=== PATIENT | male | born 2000 | race Two or more races ===

== ENCOUNTER 2021-04-19 19:27 | Inpatient (IN) | payer MEDICAID, OTHER ==
[~2021-04-19] VITALS: Ht 172.7 cm; Wt 51.7 kg
[2021-04-19] MEDS ORDERED: HALOPERIDOL 5 MG TABLET PO ONE (20:00)
[2021-04-19] MEDS ORDERED: LORazepam 1 MG TABLET PO ONE (20:00)
[2021-04-19] MEDS ORDERED: DiphenhydrAMINE HCL 25 MG CAPSULE PO ONE (20:00)
[2021-04-19 20:03] LABS: BASOPHILS % (AUTO) 1.2 % (0.0-2.0); EOSINOPHILS % (AUTO) 4.4 % (1.0-6.0); HEMOGLOBIN 15.3 g/dL (13.5-17.5); LYMPHOCYTES # (AUTO) 1.6 K/uL (1.0-4.8); LYMPHOCYTES % (AUTO) 19.4 % (22.0-44.0); MEAN CORPUSCULAR HEMOGLOBIN 30.2 pg (26.0-34.0); MEAN CORPUSCULAR HGB CONC 34.1 G/dL (31.0-37.0); MEAN CORPUSCULAR VOLUME 89 fL (80-100); MONOCYTES # (AUTO) 0.6 K/uL (0.1-1.0); MONOCYTES % (AUTO) 6.9 % (2.0-9.0); NEUTROPHILS # (AUTO) 5.7 K/uL (1.8-7.7); NEUTROPHILS % (AUTO) 68.1 % (40.0-70.0); PLATELET COUNT (AUTO) 306 K/uL (150-450); RED BLOOD CELL COUNT(AUTO) 5.08 MIL/uL (4.50-5.90); RED CELL DISTRIBUTION WIDTH 12.9 % (11.5-14.5)
[2021-04-19 20:12] LABS: ANION GAP 12 mmol/L (8-16); CALCIUM, TOTAL 9.4 mg/dL (8.8-10.5); CARBON DIOXIDE 26 mmol/L (22-29); CHLORIDE 104 mmol/L (98-107); CREATININE 0.71 mg/dL (0.60-1.30); GLOMERULAR FILTR. RATE CALC > 60 mL/min (>60); GLUCOSE,RANDOM 97 mg/dL (70-110); SODIUM SERUM 142 mmol/L (136-145); UREA NITROGEN, BLOOD 6 mg/dL (7-18)
[2021-04-19 20:17] LABS: ALANINE AMINOTRANSFERASE 17 U/L (12-78); ALBUMIN 4.6 g/dL (3.4-5.0); ALKALINE PHOSPHATASE 69 U/L (46-116); ASPARTATE AMINOTRANSFERASE 22 U/L (15-37); BILIRUBIN,TOTAL 0.6 mg/dL (0.1-1.0); TOTAL PROTEIN, SERUM 8.5 g/dL (6.4-8.2)
[2021-04-19 20:21] LABS: LITHIUM < 0.20 mmol/L (0.60-1.20)
[2021-04-19 20:21] LABS: COVID AG,FIA SOURCE NASAL SWAB
[2021-04-19 20:31] LABS: AMPHET/METH SCREEN,URINE NEGATIVE (NEGATIVE); BARBITURATE SCREEN, URINE NEGATIVE (NEGATIVE); BENZODIAZEPINES SCREEN,URINE NEGATIVE (NEGATIVE); CANNABINOID SCREEN,URINE POSITIVE (NEGATIVE); COCAINE SCREEN,URINE NEGATIVE (NEGATIVE); METHADONE SCREEN, URINE NEGATIVE (NEGATIVE); OPIATE SCREEN,URINE NEGATIVE (NEGATIVE); PHENCYCLIDINE SCREEN,URINE NEGATIVE (NEGATIVE)
[2021-04-20] MEDS: LORazepam 2 MG TABLET PO PRN (09:43)
[2021-04-20 12:30] VITALS: BP 127/75
[2021-04-20 16:37] VITALS: BP 102/63
[2021-04-21 04:31] VITALS: BP 106/72
[2021-04-21 09:38] VITALS: BP 114/70
[2021-04-21] MEDS: HALOPERIDOL 5 MG TABLET PO PRN (09:39)
[2021-04-21] MEDS: LORazepam 2 MG TABLET PO PRN (09:39)
[2021-04-21] MEDS ORDERED: CloNIDine HCL 0.1 MG TABLET PO PRN (15:30)
[2021-04-21] MEDS ORDERED: PETROLATUM,WHITE 28 GM JELLY TP PRN (15:30)
[2021-04-21] MEDS ORDERED: MAG HYDROX/AL HYDROX/SIMETH ES 30 ML SUSPENSION UDCUP PO PRN (15:30)
[2021-04-21] MEDS ORDERED: ONDANSETRON HCL 4 MG TABLET PO PRN (15:30)
[2021-04-21] MEDS ORDERED: IBUPROFEN 400 MG TABLET PO PRN (15:30)
[2021-04-21] MEDS ORDERED: MAGNESIUM HYDROXIDE SUSPENSION 30 ML UDCUP PO PRN (15:30)
[2021-04-21] MEDS ORDERED: DOCUSATE SODIUM 100 MG CAPSULE PO PRN (15:30)
[2021-04-21] MEDS ORDERED: ACETAMINOPHEN 325 MG TABLET PO PRN (15:30)
[2021-04-21] MEDS ORDERED: LOPERAMIDE HCL 2 MG CAPSULE PO PRN (15:30)
[2021-04-21] MEDS ORDERED: NICOTINE 14 MG/24 HOUR PATCH TD PRN (15:30)
[2021-04-21] MEDS ORDERED: ALBUTEROL SULFATE HFA 90 MCG/PUFF 8 GM INHALER IH PRN (15:30)
[2021-04-21] MEDS ORDERED: GuaiFENesin/D-METHORPHAN [SUGAR-FREE] 200-20MG/10 ML SYRUP UDCUP PO PRN (15:30)
[2021-04-21 17:33] VITALS: BP 108/74
[2021-04-21] MEDS: RisperiDONE 1 MG TABLET PO SCH (21:40)
[2021-04-22 04:27] VITALS: BP 102/68
[2021-04-22] MEDS: RisperiDONE 1 MG TABLET PO SCH ×2 (09:16→20:40)
[2021-04-22] MEDS: LORazepam 2 MG TABLET PO PRN ×2 (09:16→20:40)
[2021-04-22 11:04] VITALS: BP 110/70
[2021-04-22 16:07] VITALS: BP 112/70
[2021-04-23 05:28] VITALS: BP 93/53
[2021-04-23 08:03] VITALS: BP 110/70
[2021-04-23] MEDS: THIAMINE 100 MG TABLET PO SCH (08:55)
[2021-04-23] MEDS: RisperiDONE 1 MG TABLET PO SCH ×2 (08:55→20:50)
[2021-04-23] MEDS: MULTIVITAMINS WITH MINERALS, THERAPEUTIC TABLET PO SCH (08:55)
[2021-04-23] MEDS: FOLIC ACID 1 MG TABLET PO SCH (08:55)
[2021-04-23 16:43] VITALS: BP 120/81
[2021-04-23] MEDS: HALOPERIDOL 5 MG TABLET PO PRN (18:22)
[2021-04-23] MEDS: LORazepam 2 MG TABLET PO PRN (18:22)
[2021-04-23] MEDS: ZOLPIDEM TARTRATE 10 MG TABLET PO PRN (20:50)
[2021-04-24 04:30] VITALS: BP 117/77
[2021-04-24] MEDS: MULTIVITAMINS WITH MINERALS, THERAPEUTIC TABLET PO SCH (08:14)
[2021-04-24] MEDS: LORazepam 2 MG TABLET PO PRN (08:14)
[2021-04-24] MEDS: THIAMINE 100 MG TABLET PO SCH (08:14)
[2021-04-24] MEDS: RisperiDONE 1 MG TABLET PO SCH ×2 (08:14→20:09)
[2021-04-24] MEDS: FOLIC ACID 1 MG TABLET PO SCH (08:14)
[2021-04-24 08:28] VITALS: BP 112/56
[2021-04-24 16:31] VITALS: BP 114/58
[2021-04-24] MEDS: ZOLPIDEM TARTRATE 10 MG TABLET PO PRN (20:09)
[2021-04-25 05:12] VITALS: BP 112/62
[2021-04-25] MEDS: MULTIVITAMINS WITH MINERALS, THERAPEUTIC TABLET PO SCH (08:25)
[2021-04-25] MEDS: THIAMINE 100 MG TABLET PO SCH (08:25)
[2021-04-25] MEDS: FOLIC ACID 1 MG TABLET PO SCH (08:25)
[2021-04-25] MEDS: LORazepam 2 MG TABLET PO PRN ×2 (08:25→16:33)
[2021-04-25] MEDS: RisperiDONE 1 MG TABLET PO SCH ×2 (08:25→20:44)
[2021-04-25 09:59] VITALS: BP 136/69
[2021-04-25 16:03] VITALS: BP 111/63
[2021-04-25] MEDS: HALOPERIDOL 5 MG TABLET PO PRN (16:33)
[2021-04-25] MEDS: ZOLPIDEM TARTRATE 10 MG TABLET PO PRN (20:44)
[2021-04-26 00:30] VITALS: BP 110/64
[2021-04-26 08:08] VITALS: BP 118/67
[2021-04-26] MEDS: LORazepam 2 MG TABLET PO PRN ×2 (08:22→20:38)
[2021-04-26] MEDS: HALOPERIDOL 5 MG TABLET PO PRN ×2 (08:22→20:38)
[2021-04-26] MEDS: RisperiDONE 1 MG TABLET PO SCH ×2 (08:22→20:38)
[2021-04-26] MEDS: MULTIVITAMINS WITH MINERALS, THERAPEUTIC TABLET PO SCH (08:22)
[2021-04-26] MEDS: THIAMINE 100 MG TABLET PO SCH (08:22)
[2021-04-26] MEDS: FOLIC ACID 1 MG TABLET PO SCH (08:22)
[2021-04-26 16:07] VITALS: BP 110/67
[2021-04-27 00:20] VITALS: BP 112/66
[2021-04-27] MEDS: MULTIVITAMINS WITH MINERALS, THERAPEUTIC TABLET PO SCH (08:17)
[2021-04-27] MEDS: FOLIC ACID 1 MG TABLET PO SCH (08:17)
[2021-04-27] MEDS: THIAMINE 100 MG TABLET PO SCH (08:17)
[2021-04-27] MEDS: RisperiDONE 1 MG TABLET PO SCH ×2 (08:17→20:44)
[2021-04-27] MEDS: LORazepam 2 MG TABLET PO PRN ×2 (08:17→16:02)
[2021-04-27 09:18] VITALS: BP 122/68
[2021-04-27] MEDS: HALOPERIDOL 5 MG TABLET PO PRN (16:02)
[2021-04-27 16:06] VITALS: BP 126/75
[2021-04-28] MEDS: LORazepam 2 MG TABLET PO PRN (08:20)
[2021-04-28] MEDS: MULTIVITAMINS WITH MINERALS, THERAPEUTIC TABLET PO SCH (08:20)
[2021-04-28] MEDS: THIAMINE 100 MG TABLET PO SCH (08:20)
[2021-04-28] MEDS: RisperiDONE 1 MG TABLET PO SCH ×2 (08:20→21:25)
[2021-04-28] MEDS: FOLIC ACID 1 MG TABLET PO SCH (08:21)
[2021-04-28 09:19] VITALS: BP 122/74
[2021-04-28 16:07] VITALS: BP 103/64
[2021-04-28] MEDS: ZOLPIDEM TARTRATE 10 MG TABLET PO PRN (21:26)
[2021-04-29 00:07] VITALS: BP 105/70
[2021-04-29] MEDS: LORazepam 2 MG TABLET PO PRN ×2 (02:22→16:07)
[2021-04-29] MEDS: HALOPERIDOL 5 MG TABLET PO PRN ×2 (02:23→16:07)
[2021-04-29] MEDS: RisperiDONE 1 MG TABLET PO SCH ×2 (08:22→20:09)
[2021-04-29] MEDS: MULTIVITAMINS WITH MINERALS, THERAPEUTIC TABLET PO SCH (08:22)
[2021-04-29] MEDS: THIAMINE 100 MG TABLET PO SCH (08:22)
[2021-04-29] MEDS: FOLIC ACID 1 MG TABLET PO SCH (08:22)
[2021-04-29 08:35] VITALS: BP 110/72
[2021-04-29 17:40] VITALS: BP 117/68
[2021-04-30 04:43] VITALS: BP 112/67
[2021-04-30] MEDS: THIAMINE 100 MG TABLET PO SCH (08:16)
[2021-04-30] MEDS: MULTIVITAMINS WITH MINERALS, THERAPEUTIC TABLET PO SCH (08:16)
[2021-04-30] MEDS: FOLIC ACID 1 MG TABLET PO SCH (08:16)
[2021-04-30] MEDS: RisperiDONE 1 MG TABLET PO SCH ×2 (08:16→20:23)
[2021-04-30 08:25] VITALS: BP 114/66
[2021-04-30] MEDS: HALOPERIDOL 5 MG TABLET PO PRN (12:25)
[2021-04-30 16:10] VITALS: BP 105/69
[2021-05-01] MEDS: HALOPERIDOL 5 MG TABLET PO PRN ×2 (04:26→09:47)
[2021-05-01 04:40] VITALS: BP 102/67
[2021-05-01 08:00] VITALS: BP 108/70
[2021-05-01] MEDS: FOLIC ACID 1 MG TABLET PO SCH (08:03)
[2021-05-01] MEDS: THIAMINE 100 MG TABLET PO SCH (08:03)
[2021-05-01] MEDS: MULTIVITAMINS WITH MINERALS, THERAPEUTIC TABLET PO SCH (08:03)
[2021-05-01] MEDS: RisperiDONE 1 MG TABLET PO SCH ×2 (08:03→20:29)
[2021-05-01] MEDS: BENZTROPINE MESYLATE 0.5 MG TABLET PO SCH ×2 (12:09→20:29)
[2021-05-01] MEDS ORDERED: LORazepam 2 MG/ML VIAL ONE (13:13)
[2021-05-01] MEDS ORDERED: LORazepam 2 MG/ML VIAL IM ONE (13:15)
[2021-05-01 16:10] VITALS: BP 112/72
[2021-05-01] MEDS: LORazepam 0.5 MG TABLET PO PRN (20:29)
[2021-05-02 04:43] VITALS: BP 94/55
[2021-05-02] MEDS: BENZTROPINE MESYLATE 0.5 MG TABLET PO SCH ×2 (08:15→20:56)
[2021-05-02] MEDS: MULTIVITAMINS WITH MINERALS, THERAPEUTIC TABLET PO SCH (08:15)
[2021-05-02] MEDS: THIAMINE 100 MG TABLET PO SCH (08:15)
[2021-05-02] MEDS: FOLIC ACID 1 MG TABLET PO SCH (08:15)
[2021-05-02] MEDS: HALOPERIDOL 5 MG TABLET PO PRN (08:15)
[2021-05-02] MEDS: LORazepam 0.5 MG TABLET PO PRN (08:15)
[2021-05-02] MEDS: RisperiDONE 1 MG TABLET PO SCH ×2 (08:15→20:56)
[2021-05-02 08:44] VITALS: BP 113/68
[2021-05-02 16:04] VITALS: BP 113/72
[2021-05-02 17:36] LABS: GLUCOMETER DEV NAME(LOC) POC.BV
[2021-05-03 04:08] VITALS: BP 109/64
[2021-05-03] MEDS: FOLIC ACID 1 MG TABLET PO SCH (08:07)
[2021-05-03] MEDS: THIAMINE 100 MG TABLET PO SCH (08:07)
[2021-05-03] MEDS: RisperiDONE 1 MG TABLET PO SCH ×2 (08:07→20:07)
[2021-05-03] MEDS: BENZTROPINE MESYLATE 0.5 MG TABLET PO SCH ×2 (08:08→20:07)
[2021-05-03] MEDS: MULTIVITAMINS WITH MINERALS, THERAPEUTIC TABLET PO SCH (08:08)
[2021-05-03 08:28] VITALS: BP 118/70
[2021-05-03 16:03] VITALS: BP 140/89
[2021-05-03] MEDS: LORazepam 0.5 MG TABLET PO PRN (17:59)
[2021-05-03] MEDS: ZOLPIDEM TARTRATE 10 MG TABLET PO PRN (20:07)
[2021-05-04 05:10] VITALS: BP 122/84
[2021-05-04 08:00] VITALS: BP 124/80
[2021-05-04] MEDS: MULTIVITAMINS WITH MINERALS, THERAPEUTIC TABLET PO SCH (08:27)
[2021-05-04] MEDS: FOLIC ACID 1 MG TABLET PO SCH (08:27)
[2021-05-04] MEDS: THIAMINE 100 MG TABLET PO SCH (08:27)
[2021-05-04] MEDS: RisperiDONE 1 MG TABLET PO SCH ×2 (08:28→20:37)
[2021-05-04] MEDS: HALOPERIDOL 5 MG TABLET PO PRN ×2 (08:28→16:45)
[2021-05-04] MEDS: BENZTROPINE MESYLATE 0.5 MG TABLET PO SCH ×2 (08:28→20:37)
[2021-05-04] MEDS: FLUoxetine HCL 20 MG CAPSULE PO SCH (10:41)
[2021-05-04 16:05] VITALS: BP 116/73
[2021-05-04] MEDS: LORazepam 0.5 MG TABLET PO PRN (16:45)
[2021-05-04] MEDS: QUEtiapine FUMARATE 200 MG TABLET PO SCH (20:43)
[2021-05-05 06:24] VITALS: BP 118/62
[2021-05-05] MEDS: BENZTROPINE MESYLATE 0.5 MG TABLET PO SCH ×2 (08:24→20:08)
[2021-05-05] MEDS: RisperiDONE 1 MG TABLET PO SCH ×2 (08:24→20:08)
[2021-05-05] MEDS: FOLIC ACID 1 MG TABLET PO SCH (08:24)
[2021-05-05] MEDS: FLUoxetine HCL 20 MG CAPSULE PO SCH (08:24)
[2021-05-05] MEDS: THIAMINE 100 MG TABLET PO SCH (08:24)
[2021-05-05] MEDS: MULTIVITAMINS WITH MINERALS, THERAPEUTIC TABLET PO SCH (08:24)
[2021-05-05 08:47] VITALS: BP 116/68
[2021-05-05 16:05] VITALS: BP 128/76
[2021-05-05] MEDS: ZOLPIDEM TARTRATE 10 MG TABLET PO PRN (20:08)
[2021-05-05] MEDS: QUEtiapine FUMARATE 200 MG TABLET PO SCH (20:08)
[2021-05-06 05:45] VITALS: BP 118/80
[2021-05-06] MEDS: FOLIC ACID 1 MG TABLET PO SCH (08:19)
[2021-05-06] MEDS: FLUoxetine HCL 20 MG CAPSULE PO SCH (08:19)
[2021-05-06] MEDS: MULTIVITAMINS WITH MINERALS, THERAPEUTIC TABLET PO SCH (08:19)
[2021-05-06] MEDS: RisperiDONE 1 MG TABLET PO SCH ×2 (08:19→20:14)
[2021-05-06] MEDS: THIAMINE 100 MG TABLET PO SCH (08:20)
[2021-05-06] MEDS: BENZTROPINE MESYLATE 0.5 MG TABLET PO SCH ×2 (08:20→20:14)
[2021-05-06 08:39] VITALS: BP 118/69
[2021-05-06 16:22] VITALS: BP 135/82
[2021-05-06] MEDS: QUEtiapine FUMARATE 200 MG TABLET PO SCH (20:14)
[2021-05-07 04:49] VITALS: BP 109/67
[2021-05-07 08:05] VITALS: BP 108/66
[2021-05-07] MEDS: MULTIVITAMINS WITH MINERALS, THERAPEUTIC TABLET PO SCH (08:10)
[2021-05-07] MEDS: FOLIC ACID 1 MG TABLET PO SCH (08:10)
[2021-05-07] MEDS: RisperiDONE 1 MG TABLET PO SCH ×2 (08:10→21:09)
[2021-05-07] MEDS: FLUoxetine HCL 20 MG CAPSULE PO SCH (08:10)
[2021-05-07] MEDS: BENZTROPINE MESYLATE 0.5 MG TABLET PO SCH ×2 (08:11→21:09)
[2021-05-07] MEDS: THIAMINE 100 MG TABLET PO SCH (08:11)
[2021-05-07 16:16] VITALS: BP 126/79
[2021-05-07] MEDS: QUEtiapine FUMARATE 200 MG TABLET PO SCH (21:08)
[2021-05-07] MEDS: ZOLPIDEM TARTRATE 10 MG TABLET PO PRN (21:09)
[2021-05-07] MEDS: LORazepam 0.5 MG TABLET PO PRN (21:09)
[2021-05-08 05:17] VITALS: BP 115/60
[2021-05-08] MEDS: RisperiDONE 1 MG TABLET PO SCH ×2 (08:06→20:56)
[2021-05-08] MEDS: FOLIC ACID 1 MG TABLET PO SCH (08:06)
[2021-05-08] MEDS: MULTIVITAMINS WITH MINERALS, THERAPEUTIC TABLET PO SCH (08:06)
[2021-05-08] MEDS: THIAMINE 100 MG TABLET PO SCH (08:06)
[2021-05-08] MEDS: FLUoxetine HCL 20 MG CAPSULE PO SCH (08:06)
[2021-05-08] MEDS: BENZTROPINE MESYLATE 0.5 MG TABLET PO SCH ×2 (08:09→20:56)
[2021-05-08 08:12] VITALS: BP 100/60
[2021-05-08 16:16] VITALS: BP 133/88
[2021-05-08] MEDS: QUEtiapine FUMARATE 200 MG TABLET PO SCH (20:56)
[2021-05-08] MEDS: ZOLPIDEM TARTRATE 10 MG TABLET PO PRN (20:56)
[2021-05-09 03:58] VITALS: BP 133/77
[2021-05-09] MEDS: FOLIC ACID 1 MG TABLET PO SCH (08:04)
[2021-05-09] MEDS: FLUoxetine HCL 20 MG CAPSULE PO SCH (08:04)
[2021-05-09] MEDS: BENZTROPINE MESYLATE 0.5 MG TABLET PO SCH ×2 (08:04→20:08)
[2021-05-09] MEDS: RisperiDONE 1 MG TABLET PO SCH ×2 (08:04→20:08)
[2021-05-09] MEDS: MULTIVITAMINS WITH MINERALS, THERAPEUTIC TABLET PO SCH (08:04)
[2021-05-09] MEDS: THIAMINE 100 MG TABLET PO SCH (08:04)
[2021-05-09 08:05] VITALS: BP 118/71
[2021-05-09 16:04] VITALS: BP 114/67
[2021-05-09] MEDS: LORazepam 2 MG TABLET PO PRN (19:17)
[2021-05-09] MEDS: QUEtiapine FUMARATE 200 MG TABLET PO SCH (20:08)
[2021-05-09] MEDS: ZOLPIDEM TARTRATE 10 MG TABLET PO PRN (20:08)
[2021-05-10 06:13] VITALS: BP 112/72
[2021-05-10] MEDS: FLUoxetine HCL 20 MG CAPSULE PO SCH (08:08)
[2021-05-10] MEDS: MULTIVITAMINS WITH MINERALS, THERAPEUTIC TABLET PO SCH (08:08)
[2021-05-10] MEDS: FOLIC ACID 1 MG TABLET PO SCH (08:08)
[2021-05-10] MEDS: THIAMINE 100 MG TABLET PO SCH (08:08)
[2021-05-10] MEDS: RisperiDONE 1 MG TABLET PO SCH ×2 (08:08→20:18)
[2021-05-10] MEDS: BENZTROPINE MESYLATE 0.5 MG TABLET PO SCH ×2 (08:08→20:18)
[2021-05-10 08:40] VITALS: BP 108/77
[2021-05-10 16:06] VITALS: BP 110/76
[2021-05-10] MEDS: LORazepam 2 MG TABLET PO PRN (18:08)
[2021-05-10] MEDS: HALOPERIDOL 5 MG TABLET PO PRN (18:08)
[2021-05-10] MEDS: QUEtiapine FUMARATE 200 MG TABLET PO SCH (20:18)
[2021-05-10] MEDS: ZOLPIDEM TARTRATE 10 MG TABLET PO PRN (20:19)
[2021-05-10 23:50] LABS: GLUCOMETER DEV NAME(LOC) POC.BV
[2021-05-11 02:47] VITALS: BP 106/69
[2021-05-11 08:14] VITALS: BP 124/70
[2021-05-11] MEDS: THIAMINE 100 MG TABLET PO SCH (08:34)
[2021-05-11] MEDS: RisperiDONE 1 MG TABLET PO SCH ×2 (08:34→20:34)
[2021-05-11] MEDS: FLUoxetine HCL 20 MG CAPSULE PO SCH (08:34)
[2021-05-11] MEDS: BENZTROPINE MESYLATE 0.5 MG TABLET PO SCH ×2 (08:34→20:34)
[2021-05-11] MEDS: FOLIC ACID 1 MG TABLET PO SCH (08:34)
[2021-05-11] MEDS: MULTIVITAMINS WITH MINERALS, THERAPEUTIC TABLET PO SCH (08:35)
[2021-05-11 16:14] VITALS: BP 127/86
[2021-05-11] MEDS: LORazepam 2 MG TABLET PO PRN (20:34)
[2021-05-11] MEDS: QUEtiapine FUMARATE 200 MG TABLET PO SCH (20:34)
[2021-05-12 04:01] VITALS: BP 123/67
[2021-05-12 08:07] VITALS: BP 120/70
[2021-05-12] MEDS: FLUoxetine HCL 20 MG CAPSULE PO SCH (08:20)
[2021-05-12] MEDS: THIAMINE 100 MG TABLET PO SCH (08:20)
[2021-05-12] MEDS: MULTIVITAMINS WITH MINERALS, THERAPEUTIC TABLET PO SCH (08:20)
[2021-05-12] MEDS: RisperiDONE 1 MG TABLET PO SCH ×2 (08:20→20:15)
[2021-05-12] MEDS: BENZTROPINE MESYLATE 0.5 MG TABLET PO SCH ×2 (08:20→20:15)
[2021-05-12] MEDS: FOLIC ACID 1 MG TABLET PO SCH (08:20)
[2021-05-12 16:11] VITALS: BP 136/83
[2021-05-12] MEDS: QUEtiapine FUMARATE 200 MG TABLET PO SCH (20:15)
[2021-05-13 07:56] VITALS: BP 118/73
[2021-05-13] MEDS: MULTIVITAMINS WITH MINERALS, THERAPEUTIC TABLET PO SCH (08:12)
[2021-05-13] MEDS: FLUoxetine HCL 20 MG CAPSULE PO SCH (08:12)
[2021-05-13] MEDS: BENZTROPINE MESYLATE 0.5 MG TABLET PO SCH ×2 (08:12→20:10)
[2021-05-13] MEDS: FOLIC ACID 1 MG TABLET PO SCH (08:12)
[2021-05-13] MEDS: RisperiDONE 1 MG TABLET PO SCH ×2 (08:12→20:10)
[2021-05-13] MEDS: THIAMINE 100 MG TABLET PO SCH (08:12)
[2021-05-13 10:08] VITALS: BP 118/73
[2021-05-13 16:37] VITALS: BP 120/72
[2021-05-13] MEDS: LORazepam 2 MG TABLET PO PRN (20:10)
[2021-05-13] MEDS: QUEtiapine FUMARATE 200 MG TABLET PO SCH (20:10)
[2021-05-13] MEDS: ZOLPIDEM TARTRATE 10 MG TABLET PO PRN (20:33)
[2021-05-14 06:41] VITALS: BP 89/52
[2021-05-14] MEDS: RisperiDONE 1 MG TABLET PO SCH ×2 (08:08→20:44)
[2021-05-14] MEDS: FOLIC ACID 1 MG TABLET PO SCH (08:08)
[2021-05-14] MEDS: THIAMINE 100 MG TABLET PO SCH (08:08)
[2021-05-14] MEDS: FLUoxetine HCL 20 MG CAPSULE PO SCH (08:09)
[2021-05-14] MEDS: MULTIVITAMINS WITH MINERALS, THERAPEUTIC TABLET PO SCH (08:09)
[2021-05-14] MEDS: BENZTROPINE MESYLATE 0.5 MG TABLET PO SCH ×2 (08:09→20:44)
[2021-05-14 08:47] VITALS: BP 100/62
[2021-05-14 16:07] VITALS: BP 116/69
[2021-05-14] MEDS: LORazepam 2 MG TABLET PO PRN ×2 (16:44→20:44)
[2021-05-14] MEDS: HALOPERIDOL 5 MG TABLET PO PRN (16:44)
[2021-05-14] MEDS: ZOLPIDEM TARTRATE 10 MG TABLET PO PRN (20:44)
[2021-05-14] MEDS: QUEtiapine FUMARATE 200 MG TABLET PO SCH (20:44)
[2021-05-15 08:07] VITALS: BP 116/70
[2021-05-15] MEDS: BENZTROPINE MESYLATE 0.5 MG TABLET PO SCH ×2 (08:08→20:10)
[2021-05-15] MEDS: THIAMINE 100 MG TABLET PO SCH (08:08)
[2021-05-15] MEDS: FOLIC ACID 1 MG TABLET PO SCH (08:08)
[2021-05-15] MEDS: MULTIVITAMINS WITH MINERALS, THERAPEUTIC TABLET PO SCH (08:08)
[2021-05-15] MEDS: FLUoxetine HCL 20 MG CAPSULE PO SCH (08:08)
[2021-05-15] MEDS: RisperiDONE 1 MG TABLET PO SCH ×2 (08:08→20:10)
[2021-05-15] MEDS: LORazepam 2 MG TABLET PO PRN (15:49)
[2021-05-15] MEDS: HALOPERIDOL 5 MG TABLET PO PRN (15:49)
[2021-05-15 16:05] VITALS: BP 113/66
[2021-05-15] MEDS: ZOLPIDEM TARTRATE 10 MG TABLET PO PRN (20:10)
[2021-05-15] MEDS: QUEtiapine FUMARATE 200 MG TABLET PO SCH (20:10)
[2021-05-16 06:04] VITALS: BP 102/58
[2021-05-16] MEDS: MULTIVITAMINS WITH MINERALS, THERAPEUTIC TABLET PO SCH (08:14)
[2021-05-16] MEDS: FOLIC ACID 1 MG TABLET PO SCH (08:14)
[2021-05-16] MEDS: FLUoxetine HCL 20 MG CAPSULE PO SCH (08:14)
[2021-05-16] MEDS: THIAMINE 100 MG TABLET PO SCH (08:14)
[2021-05-16] MEDS: BENZTROPINE MESYLATE 0.5 MG TABLET PO SCH ×2 (08:14→20:51)
[2021-05-16] MEDS: RisperiDONE 1 MG TABLET PO SCH ×2 (08:14→20:51)
[2021-05-16 09:09] VITALS: BP 112/63
[2021-05-16 16:21] VITALS: BP 118/66
[2021-05-16] MEDS: QUEtiapine FUMARATE 200 MG TABLET PO SCH (20:51)
[2021-05-17 04:20] VITALS: BP 109/62
[2021-05-17] MEDS: FOLIC ACID 1 MG TABLET PO SCH (08:19)
[2021-05-17] MEDS: RisperiDONE 1 MG TABLET PO SCH ×2 (08:19→20:59)
[2021-05-17] MEDS: THIAMINE 100 MG TABLET PO SCH (08:19)
[2021-05-17] MEDS: MULTIVITAMINS WITH MINERALS, THERAPEUTIC TABLET PO SCH (08:19)
[2021-05-17] MEDS: BENZTROPINE MESYLATE 0.5 MG TABLET PO SCH ×2 (08:19→20:59)
[2021-05-17] MEDS: FLUoxetine HCL 20 MG CAPSULE PO SCH (08:19)
[2021-05-17 08:24] VITALS: BP 117/69
[2021-05-17 16:15] VITALS: BP 122/75
[2021-05-17] MEDS: QUEtiapine FUMARATE 200 MG TABLET PO SCH (20:59)
[2021-05-18 01:14] VITALS: BP 114/67
[2021-05-18 08:07] VITALS: BP 120/64
[2021-05-18] MEDS: FLUoxetine HCL 20 MG CAPSULE PO SCH (08:09)
[2021-05-18] MEDS: BENZTROPINE MESYLATE 0.5 MG TABLET PO SCH (08:09)
[2021-05-18] MEDS: RisperiDONE 1 MG TABLET PO SCH (08:09)
[2021-05-18] MEDS: MULTIVITAMINS WITH MINERALS, THERAPEUTIC TABLET PO SCH (08:09)
[2021-05-18] MEDS: FOLIC ACID 1 MG TABLET PO SCH (08:09)
[2021-05-18] MEDS: THIAMINE 100 MG TABLET PO SCH (08:09)
[2021-05-18] MEDS ORDERED: BENZ0.5T49 PO (11:04)
[2021-05-18] MEDS ORDERED: QUET200T30 PO (11:04)
[2021-05-18] MEDS ORDERED: RISP1TAB98 PO (11:04)
[2021-05-18] MEDS ORDERED: PROZ20 PO (11:04)
[2021-05-18 16:09] VITALS: BP 117/72
== END 2021-05-18 18:36 | disposition home or self-care (01) | DRG 750 ==
LOC: EMS 19:27 → B3A 04-20 07:34
PROVIDERS: ADMIT Psychiatry & Neurology Child & Adolescent Psychiatry; ATTEND Psychiatry & Neurology Child & Adolescent Psychiatry
DX: F20.0 Paranoid schizophrenia (principal); R45.851 Suicidal ideations; Z59.00 Homelessness unspecified; Z20.822 Contact with and (suspected) exposure to COVID-19; F12.10 Cannabis abuse, uncomplicated
CPT/HCPCS: 80053; 80178; 83735; 84100; 85025; 87081; 99285; J2060; Q0162